=== PATIENT | male | born 1940 | race Caucasian/White ===

== ENCOUNTER → 2023-01-10 14:57 | Outpatient (BNVA) | payer MEDICARE, SELFPAY | PROVIDERS: Family Provider Nurse Practitioner Family; PCP Family Medicine; Referring Provider Family Medicine; Visit Provider Internal Medicine Cardiovascular Disease | DX: R09.89 Other specified symptoms and signs involving the circulatory and respiratory systems (principal); I77.9 Disorder of arteries and arterioles, unspecified; R07.9 Chest pain, unspecified; R06.02 Shortness of breath; I25.10 Atherosclerotic heart disease of native coronary artery without angina pectoris; I48.0 Paroxysmal atrial fibrillation; I11.0 Hypertensive heart disease with heart failure; I50.32 Chronic diastolic (congestive) heart failure; Z95.0 Presence of cardiac pacemaker; R94.31 Abnormal electrocardiogram [ECG] [EKG] | CPT/HCPCS: 36415; 80048; 83880; 93005; 99204 ==

== ENCOUNTER 2023-01-18 12:48 | Outpatient (CLI) | payer MEDICARE, SELFPAY ==
--- NOTE | 2023-01-18 13:00 | USCV_ITS ---
Jl Escobar Age: 82 Gender: M : 1940 Exam Date: 01/18/2023 13:04 Ordering Phys: Christy Draper MD ([email or web address]) Technologist: CT Exam Location: [facility] [place] Indication: stenosis Risk Factors: Previous Vascular Surgery: Right Brachial BP: / Left Brachial BP: / Right Left Velocity (cm/s) Spectral Plaque Velocity (cm/s) Spectral Plaque Syst/Diast Broadening Syst/Diast Broadening 59.30/ 14.80 Prox CCA 73.00 / 15.50 50.40/ 16.00 Mid CCA 70.80 / 17.40 45.40/ 14.20 Distal CCA 58.30 / 16.70 80.90/ 17.70 Prox ICA 54.20 / 21.70 61.30/ 14.20 Mid ICA 408.10/ 112.90 62.30/ 16.80 Distal ICA 283.90/ 80.80 93.70 ECA 172.60 1.36 ICA/CCA 5.59 Antegrade Vertebral Antegrade 38.80/ 7.80 cm/s 47.90/ 16.00 cm/s Bi Subclavian Bi 83.10 87.60 FINDINGS Moderate heterogenous plaques of the right bifurcation and proximal internal carotid artery Moderate heterogenous plaques of the left bifurcation and proximal internal carotid artery. Heavy heterogenous plaques at the mid and distal internal carotid artery on the left side. Markedly elevated Doppler velocities and. Flow turbulence CONCLUSIONS Moderate heterogenous plaques at the bifurcations and proximal internal carotid arteries bilaterally suggesting less than 50% stenosis. Heavy heterogenous plaques at the mid and distal internal carotid artery on the left side with markedly elevated Doppler velocities and. Flow turbulence, suggesting hemodynamically significant stenosis of greater than 70%. Antegrade flow in the vertebral arteries bilaterally. Elevated Doppler flow velocity in the left external carotid artery also may suggest hemodynamically significant stenosis Consider CTA, to better evaluate the stenosis in the left mid to distal ICA No similar previous studies are available for comparison Dr Christy Draper MD [facility] (Electronically Signed) Final Date: 21 January 2023 09:30 S
== END 2023-01-18 12:49 | disposition home or self-care (01) ==
LOC: RAD 12:48
PROVIDERS: Family Provider Nurse Practitioner Family; PCP Family Medicine; Visit Provider Internal Medicine Cardiovascular Disease
DX: I65.23 Occlusion and stenosis of bilateral carotid arteries (principal); I77.9 Disorder of arteries and arterioles, unspecified
CPT/HCPCS: 93880

== ENCOUNTER 2023-01-25 13:13 | Outpatient (CLI) | payer MEDICARE, SELFPAY ==
--- NOTE | 2023-01-25 13:45 | USCV_ITS ---
Jl Escobar Age: 82 Gender: M : 1940 Exam Date: 01/25/2023 13:28 Ordering Phys: Christy Draper MD ([email or web address]) Technologist: Florence Weiss [place] [facility] [place]: CHF BP: 130 / 75 HR: 70 Rhythm: Atrial fibrillation Technical Quality: Adequate MEASUREMENTS (Male / Female) Normal Values 2D ECHO LV Diastolic Diameter PLAX 4.5 cm 4.2 - 5.9 / 3.9 - 5.3 cm LV Systolic Diameter PLAX 3.8 cm LV Chamber Size 3.4 cm IVS Diastolic Thickness 1.3 cm 0.6 - 1.0 / 0.6 - 0.9 cm IVS Systolic Thickness 1.6 cm LVPW Diastolic Thickness 1.4 cm 0.6 - 1.0 / 0.6 - 0.9 cm LVPW Systolic Thickness 1.5 cm RV Chamber Size 3.8 cm LVOT Diameter 2.0 cm LV Ejection Fraction 2D Teich 29.3 % LV Ejection Fraction MOD 2C 77.9 % LV Ejection Fraction 2C AL 78.1 % LA Diameter 3.8 cm LA Width 3.8 cm LA Height 4.2 cm RA Width 3.3 cm RA Height 5.2 cm Aorta at Sinotubular Diameter 3.6 cm IVC Diameter 1.7 cm M-MODE Aortic Annulus Diameter 3.9 cm LA Ao Ratio MM 1.1 MV E Point Septal Separation 0.6 cm DOPPLER AV Peak Velocity 147.0 cm/s LVOT Peak Velocity 83.3 cm/s AV Area Cont Eq vti 1.8 cm squared AV Area Cont Eq pk 1.9 cm squared MV Area PHT 2.7 cm squared MV E' Velocity 53.0 cm/s Mitral E to MV E' Ratio 10.9 Mitral E to LV E' Lateral Ratio 9.1 Mitral E to LV E' Septal Ratio 13.8 TR Peak Velocity 252.5 cm/s TR Peak Gradient 25.5 mmHg TR Mean Velocity 192.9 cm/s TR Mean Gradient 16.4 mmHg TR Velocity Time Integral 77.5 cm TV Peak E Velocity 42.0 cm/s Right Atrial Pressure 3.0 mmHg Pulmonary Artery Systolic Pressu 28.5 mmHg RV Acceleration Time 0.1 s RV Ejection Time 0.3 s RV AcT/ET 0.4 FINDINGS Left Ventricle Diffuse hyponasal left-ventricule.. Somewhat dyskinetic septum. Overall LV ejection fraction of 30 to 35% Right Ventricle Catheter/pacemaker wire in the right ventricular cavity. Right Atrium Moderately increased right atrial size. Catheter/pacemaker wire in the right atrial cavity. Left Atrium Moderately increased left atrial size. Mitral Valve Mild to moderate mitral valve regurgitation. Aortic Valve Thickened aortic valve. Moderate aortic valve calcification. Tricuspid Valve Moderate tricuspid valve regurgitation. Pulmonic Valve No gross abnormality noted Pericardium Normal pericardium without effusion. Aorta Normal aortic annulus size. IVC Normal inferior vena cava. CONCLUSIONS Diffuse hypokinesia of the left ventricle with an ejection fraction of 30 to 35%. Wall motion abnormality as mentioned above Moderate biatrial enlargement. Pacemaker wire noted in the right ventricle Mild to moderate mitral valve regurgitation. Moderate tricuspid valve regurgitation. Estimated pulmonary artery peak systolic pressure of 29 mmHg. There is no pericardial effusion. There are no intracardiac masses. No similar previous studies are available for comparison Dr Christy Draper MD [facility] (Electronically Signed) Final Date: 30 January 2023 16:57 S
[2023-01-25 14:45] LABS: Anion Gap 15.2 (5-19); Blood Urea Nitrogen 22 mg/dL (8-23); Calcium 9.5 mg/dL (8.5-10.5); Carbon Dioxide 27 mmol/L (22-29); Chloride 99 mmol/L (98-107); Glucose 91 mg/dL (65-115); NT Pro B Type Natriuretic Pept 2192 pg/mL (0-450); Osmolality Calculated 289 mOsm/kg (285-295); Potassium 3.2 mmol/L (3.5-5.1); Sodium 138 mmol/L (136-145)
== END 2023-01-25 13:14 | disposition home or self-care (01) ==
PROVIDERS: Family Provider Nurse Practitioner Family; PCP Family Medicine; Visit Provider Internal Medicine Cardiovascular Disease
DX: I50.32 Chronic diastolic (congestive) heart failure (principal); I08.1 Rheumatic disorders of both mitral and tricuspid valves; Z95.0 Presence of cardiac pacemaker
CPT/HCPCS: 36415; 80048; 83880; 93306

== ENCOUNTER 2023-02-08 12:04 | Outpatient (CLI) | payer MEDICARE, SELFPAY ==
--- NOTE | 2023-02-08 12:30 | CT_ITS ---
WS: [id number] CTA NECK TECHNIQUE: Contrast enhanced CTA of the neck with coronal and sagittal reformatted images and maximum intensity projection (MIP) images. NASCET criteria utilized. CLINICAL INFORMATION: R09.89 - Other specified symptoms and signs involving the... COMPARISON: Ultrasound 01/18/2023 DLP: 217.[address] scans at [facility] use at least one of these dose optimization techniques: automated e xposure control; mA and/or kV adjustment per patient size (includes targeted exams where dose is matc hed to clinical indication); or iterative reconstruction. FINDINGS: RIGHT: RIGHT ICA stenosis 41%. RIGHT common carotid artery is patent. Densely calcified atheromatous plaque RIGHT carotid bulb extending into the ICA. RIGHT ICA is patent to the skull base. LEFT: LEFT ICA stenosis greater than 80%. Tiny residual string-like lumen. Moderate stenosis of the L EFT ECA origin. LEFT common carotid artery is patent. Dense calcified atheromatous plaque LEFT caroti d bulb extending into the ICA and ECA. LEFT ICA is patent to the skull base. LEFT dominant vertebral artery. Smaller but patent RIGHT vertebral artery which remains patent. Advanced spondylitic changes cervical spine. Disc osteophyte complex with mild central canal stenosis C5-6. IMPRESSION: 1. RIGHT ICA stenosis 41% 2. LEFT ICA stenosis greater than 80%. Tiny residual string-like lumen. 3. LEFT dominant vertebral artery. Smaller but patent RIGHT vertebral artery which remains patent.
[2023-02-08] MEDS: iohexol 350 mg/mL 500 mL Btl (per mL) IV (12:46)
== END 2023-02-08 12:05 | disposition home or self-care (01) ==
LOC: RAD 12:04
PROVIDERS: Family Provider Nurse Practitioner Family; PCP Family Medicine; Visit Provider Internal Medicine Cardiovascular Disease
DX: R09.89 Other specified symptoms and signs involving the circulatory and respiratory systems (principal); I65.23 Occlusion and stenosis of bilateral carotid arteries
CPT/HCPCS: 70498; Q9967

== ENCOUNTER → 2023-02-09 12:02 | Outpatient (BNVA) | payer MEDICARE, SELFPAY | PROVIDERS: Family Provider Nurse Practitioner Family; PCP Family Medicine; Visit Provider Nurse Practitioner Family | DX: R68.89 Other general symptoms and signs (principal); I50.32 Chronic diastolic (congestive) heart failure | CPT/HCPCS: 80048; 83880; 87400 ==

== ENCOUNTER → 2023-02-24 12:57 | Outpatient (BNVA) | payer MEDICARE, SELFPAY | PROVIDERS: Family Provider Nurse Practitioner Family; PCP Family Medicine; Visit Provider Thoracic Surgery (Cardiothoracic Vascular Surgery) | DX: I65.22 Occlusion and stenosis of left carotid artery (principal); Z95.0 Presence of cardiac pacemaker | CPT/HCPCS: 99203 ==

== ENCOUNTER → 2023-03-03 10:46 | Outpatient (BNVA) | payer MEDICARE, SELFPAY | PROVIDERS: Family Provider Nurse Practitioner Family; PCP Family Medicine; Referring Provider Internal Medicine Cardiovascular Disease; Visit Provider Internal Medicine Cardiovascular Disease | DX: R06.02 Shortness of breath (principal) | CPT/HCPCS: 80048; 83880 ==

== ENCOUNTER → 2023-03-24 10:47 | Outpatient (BNVA) | payer MEDICARE, SELFPAY | PROVIDERS: Family Provider Nurse Practitioner Family; PCP Family Medicine; Referring Provider Internal Medicine Cardiovascular Disease; Visit Provider Internal Medicine Cardiovascular Disease | DX: I50.32 Chronic diastolic (congestive) heart failure (principal) | CPT/HCPCS: 80048; 83880 ==

== ENCOUNTER 2023-04-12 10:21 | Outpatient (CLI) | payer MEDICARE, SELFPAY ==
[2023-04-12 10:42] VITALS: BMI 26.6
--- NOTE | 2023-04-12 10:50 | NMCV_ITS ---
NM flora perf SPECT r/s* [id number] Jl Escobar Age: 82 Gender: M : 1940 Exam Date: 04/12/2023 11:02 Ordering Phys: Christy Draper MD ([email or web address]) Technologist: AGUSTIN Hudson Exam Location: [facility] Indications: CHEST PAIN, SHORTNESS OF BREATH STRESS TEST Please see separate stress test report in [facility] for full findings IMAGE PROTOCOL Rest/Stress 1 Lexiscan Day Radiopharmaceutical Dose (mCi) Administration Site Administered by Rest: Tc-99m 10.7 IV AGUSTIN Fish Sestamibi Stress:Tc-99m 32.2 IV AGUSTIN Fish Sestamibi Rest: 12-Apr-2023 60 Discovery 630 Stress: 12-Apr-2023 30 Discovery 630 0.4mg Lexiscan. Images obtained in supine and prone position. SPECT RESULTS Technical Quality: Excellent Raw Data Analysis: Normal Image Corrections: No attenuation or motion correction applied Summed Stress Score: 18 Summed Rest Score: 9 Summed Difference Score: 9 PERFUSION FINDINGS Moderate to large area of moderate to severely decreased tracer uptake involving the inferior, inferolateral, anterolateral and apical regions. Significant reversibility was noted in these regions FUNCTIONAL RESULTS (calculated via Gated SPECT) Stress Image LV EF (%): 43 Stress EDV (mL):151 TID: 1.03 Stress ESV (mL):86 FUNCTIONAL FINDINGS: Moderate to large area of moderate to severely decreased tracer uptake involving the inferior, inferolateral and apical regions with significant reversibility suggesting myocardial scarring with ischemia in the distribution of the right coronary artery and circumflex artery. 2. Slightly diminished LV ejection fraction of 43%. 3. LV wall motion analysis revealed diffuse hypokinesis of the LV apex and septum. 4. Mildly dilated LV cavity with an end-systolic volume of 86 ml. 5. No similar previous studies are available for comparison IMPRESSIONS Dr Christy Draper MD [facility] (Electronically Signed) Final Date: 12 April 2023 13:46 S
[2023-04-12] MEDS: regadenoson 0.4 Mg/5 ml Syringe 0.400000000000000022 MG IVP (11:55)
[2023-04-12 12:05] VITALS: BP 123/68; PULSE 98
== END 2023-04-12 10:22 | disposition home or self-care (01) ==
PROVIDERS: PCP Family Medicine; Visit Provider Internal Medicine Cardiovascular Disease
DX: R07.9 Chest pain, unspecified (principal); R06.02 Shortness of breath
CPT/HCPCS: 36415; 78452; 93017; 96374; A9500; J2785

== ENCOUNTER → 2023-04-13 10:11 | Outpatient (BNVA) | payer MEDICARE, SELFPAY | PROVIDERS: PCP Family Medicine; Visit Provider Internal Medicine Cardiovascular Disease | DX: I25.10 Atherosclerotic heart disease of native coronary artery without angina pectoris (principal); I50.32 Chronic diastolic (congestive) heart failure; Z79.01 Long term (current) use of anticoagulants; I25.118 Atherosclerotic heart disease of native coronary artery with other forms of angina pectoris; I48.0 Paroxysmal atrial fibrillation; Z95.0 Presence of cardiac pacemaker; I65.22 Occlusion and stenosis of left carotid artery | CPT/HCPCS: 99214 ==

== ENCOUNTER 2023-05-04 08:55 | Observation (INO) | payer MEDICARE, SELFPAY ==
[2023-05-04] VITALS (22 sets, daily range): BP systolic 105–149; BP diastolic 54–80; PULSE 60–65; RESP 7–29; TEMP 36.6; O2SAT 90–98; BMI 26.6
--- NOTE | 2023-05-04 06:00 | XACV_ITS ---
Exam Room: 2 Ht: 175 cm Wt: 82 kg BSA: 2.01 m2 Gender: Male : 1940 Any Known Allergies: Other Exam Priority: Routine Procedure(s): Procedure Description: Diagnostic procedure Procedure Description: Left Heart Catheterization Procedure Description: Venous Graft Catheterization Procedure Description: CARR Graft Catheterization Procedure Description: Coronary Angiography Baron BARRIGA; Diagnostic Cath Status: Elective Diagnostic Findings * The left main is a medium caliber vessel with a mild intimal irregularities. * The left anterior descending artery is a medium caliber vessel which appears to have mild to moderate diffuse disease in the proximal LAD and mid segment. The artery appears to be completely occluded after the second septal gerontology aide. The artery gives of relatively small caliber diagonal vessels proximally with a mild to moderate diffuse disease.. * The circumflex artery is a medium caliber vessel, appears to have mild to moderate diffuse disease proximally. It gives of a high diagonal branch which has moderate diffuse in-stent stenosis in the proximal segment. The artery appears to trifurcated distally with the moderate diffuse disease. No significant stenotic lesions were noted. Left to right collaterals, filling of the PLV branch of the right coronary artery was noted.. * The right coronary artery is a medium caliber dominant vessel which he was found to be diffusely ectatic with mild to moderate diffuse disease. The PLV and PDA branches were found to be totally occluded. The venous graft to the PDA was found to be retrogradely filling during the right coronary injection. * The sequential venous graft to the PDA/obtuse marginal artery was found to be totally occluded proximally. * The CARR to the LAD was found to be widely patent with no significant stenotic lesions. The distal LAD was found to have mild diffuse disease. Conclusions 1. 82-year-old white male with a history of atherosclerotic heart disease, status post three-vessel coronary bypass surgery, chronic atrial fibrillation with a permanent pacemaker implantation for symptomatic bradycardia, was found to have a high-grade stenosis in the left internal carotid artery. His LV ejection fraction was around 35% by echocardiogram. As part of the preop evaluation, he had a Myocardial perfusion imaging which revealed areas of reversible and reversible defects in the distribution of the right coronary artery/circumflex artery. To further evaluate the coronary status as well as the graft status, a cardiac catheterization was recommended. Patient underwent left heart catheterization with a left and right coronary angiogram and graft angiogram today. The findings are as follows. 2. 1. Minimal intimal irregularities in the left main, a medium caliber vessel. 2. Total occlusion of the mid LAD with a mild to moderate diffuse disease in the proximal and mid segment. Total occlusion of the circumflex artery after giving of the first obtuse marginal branch. 4. Total occlusion of the distal right coronary artery with a mild to moderate diffuse disease in the proximal and mid segment. 5. Patent CARR to the distal LAD. Occluded saphenous venous graft to the PDA/obtuse marginal branch of the circumflex artery.6. LVEDP of 11 mmHg. Diagnostic RX Recommendation: medical therapy and/or counseling LV EDP: 11 mmHg Left Ventriculography Findings: * LV gram was not performed because of the chronic kidney disease. LVEDP was 11 mmHg. Pressures Phase:Rest AO : / ( 28 ) @ 8:38:00 AM 130 / 59 ( 86 ) @ 9:00:00 AM 118 / 70 ( 92 ) @ 9:11:00 AM 125 / 81 ( 100 ) @ 9:14:00 AM 120 / 64 ( 81 ) @ 9:26:00 AM 141 / 55 ( 87 ) @ 9:26:00 AM LV : 130 / 3 / 11 @ 9:26:00 AM 126 / 3 / 11 @ 9:26:00 AM 128 / 2 / 10 @ 9:26:00 AM Valves Phase:DefaultPhase AV : 9.0 @ 8:38:44 AM 9.0 @ 8:38:44 AM AV Mean Gradient: 17.0 @ 8:38:44 AM 17.0 @ 8:38:44 AM Clinical Evaluation EBL: 5mL-10mL Procedural Details Pre-Procedure Time Out. Identified patient by full name and date of as verbalized by the patient/guarantor. Does the consent match the physician's order: Yes. Accurate & Complete Informed Consent: Yes. Inpatient/Outpatient History & Physical on Chart: Yes. If H&P is completed, is and addenduem needed: No; If yes, is the addendum complete: N/A. Visualize and Verify Site with Patient/Guarantor: N/A. Relevant Radiology Images available: Yes. Pre-op teaching completed and patient verbalized understanding. The risks, benefits, and alternatives of sedation and/or procedure were discussed by physician. The patient agrees to continue. Procedure started. [facility] Clinical Fraility Score: 3: Managing Well. Wet Silk Hanger Indications: Worsening Angina. Chest Pain Symptom Assessment: Atypical Angina. Correct patient, site and procedure confirmed by cath team. Current diagnosis: Chest Pain. PERRLA. Strong, equal hand aligning inspector bilaterally. Lungs clear x 5 lobes. IV Site on Arrival: 20 gauge in the left anticubital. IV Fluids: 0.9% NaCl at KVO. 0 mL infused prior to woven label designer. Pre Procedural Pulses: bilateral dorsalis pedis was 2+. Pre Procedural Pulses: right posterior tibial was Doppled. Pre Procedural Pulses: left posterior tibial was 1+. Pre Procedural Pulses: bilateral radial was 2+. Oxygen started at 2liters/min via nasal canula. bilateral groins was prepped with chloroprep then draped in the usual sterile fashion. Physician arrived. Current Diagnosis : Chest Pain. Physician scrubbed in. Immediate Pre-Procedure Time Out. Correct Patient: Yes; Correct Procedure: Yes; Correct Site: Yes; Correct Patient Position: Yes; Correct Supplies: Yes; Dried Flammable Prep: Yes; Blood Products Available: N/A;. Lidocaine 1% infiltrated to the right groin. Arterial access obtained with micropuncture set. A Right femoral angiogram was performed. A 5 swiss JR4 catheter in over wire. Catheter removed over the standard wire. The 6Fr sheath was exchanged for a 45cm 6Fr Flexor sheath. Wire out. A 5 swiss JR4 catheter in over wire. Multiple views taken of right coronary artery. Catheter removed over the exchange wire. A 5 swiss IM catheter in over wire. CARR to LAD visualized. Catheter removed over the standard wire. A 5 swiss JL4 catheter in over wire. Multiple views taken of left coronary artery. Catheter removed over the standard wire. A 5 swiss LCB catheter in over wire. SVG to OM occluded. Catheter removed over the standard wire. A 6 swiss 125cm Straight Pig catheter in over wire. EDP Sample taken: LV 130/3,11; HR: 73 BPM; SpO2: 97%. Pullback taken: LV Off; AO Off; Mean: , Peak to Peak: , SEP: ; HR: 73 BPM; SpO2: 97%. EDP Sample taken: LV 126/3,11; HR: 70 BPM; SpO2: 96%. Pullback taken: LV 128/2,10; AO 120/64(81); Mean: 17mmHg, Peak to Peak: 9mmHg, SEP: 15sec/min; HR: 66 BPM; SpO2: 96%. Catheter removed over the exchange wire. The long Flexor sheath exchanged for a 6Fr sheath. A Suture was successful obtaining hemostatsis at the Right Femoral artery insertion site. Post Procedure: Pulses reassessed and unchanged. PERRLA. Strong, equal hand aligning inspector bilaterally. No VTE prophylaxis required. Total IV fluids: 70 mL. Medication's Wasted: Other = Fentanyl 100mcg Versed 1 mg. Medication's Wasted: Heparin = 2500 units. Complications: None. Estimated blood loss: 5mL-10mL. Responsiveness - Normal response to verbal stimuli; alert and oriented, PERRLA. Airway - Unaffected, no intervention required; spontaneous ventilation. Circulation: W/N/L, pulses unchanged. Nausea/Vomiting: No. Procedure completed. Patient transferred by bed to 1st floor. Vital chart was stopped. Access Site Site: Right Femoral artery Sheath Size: 6 Fr Hemostasis Method: Suture Hemostasis Success: Successful Procedure Medications Start: 7:47 AM Stop: 7:47 AM Medication: Versed Amount: 1 mg Route: I.V. Start: 7:50 AM Stop: 7:50 AM Medication: Versed Amount: 1 mg Route: I.V. Start: 8:00 AM Stop: 8:00 AM Medication: Heparin Amount: 1500 units Route: I.V. Start: 8:23 AM Stop: 8:23 AM Medication: Versed Amount: 1 mg Route: I.V. I, the attending physician, have reviewed and verified all procedure medications. Yes, all medications given per verbal order History/Risk Factors Hypertension: Yes Dyslipidemia: No Peripheral Arterial Disease (PAD): No Myocardial Infarction (DC): No Obesity: No Renal Disease: No Tobacco Use: Never Prior Interventions PCI: No CABG: Yes Valve Surgery: No Report Signatures Finalized by Dr Christy Draper MD [facility] on 05/04/2023 06:27 PM
[2023-05-04] MEDS: diphenhydrAMINE 50 mg Capsule PO (06:15)
[2023-05-04 06:23] LABS: Basophils % 0.4 %; Eosinophils # 0.1 10^3/uL (0.0-0.8); Eosinophils % 0.7 %; Hematocrit 45.1 % (37-53); Lymphocytes # 2.8 10^3/uL (0.8-4.8); Lymphocytes % 29.4 %; Mean Corpuscular HGB Conc 34.8 g/dL (30-55); Mean Corpuscular Hemoglobin 35.9 pg (27-33); Mean Corpuscular Volume 103.2 fl (82-101); Mean Platelet Volume 12.1 fL (7.4-10.4); Monocytes # 0.9 10^3/uL (0.2-0.9); Monocytes % 9.1 %; Neutrophils # 5.64 10^3/uL (1.8-7.7); Neutrophils % 60.1 %; Nucleated Red Blood Cells % 0 %; Platelet Count 168 10^3/cmm (157-399); Red Blood Count 4.37 10^6/uL (3.85-5.65); Red Cell Distribution Width 12.8 % (12.1-15.1)
[2023-05-04 06:40] LABS: Blood Urea Nitrogen 30 mg/dL (8-23); Calcium 9.6 mg/dL (8.5-10.5); Carbon Dioxide 23 mmol/L (22-29); Chloride 101 mmol/L (98-107); Creatinine Clr Calc Pharmacy 42.2144; Glucose 118 mg/dL (65-115); Osmolality Calculated 293 mOsm/kg (285-295); Sodium 138 mmol/L (136-145)
--- NOTE | 2023-05-04 07:35 | P.HPUD_ITS ---
Surgery/Procedure H&P Update DATE OF PROCEDURE: May 04, 2023 DATE H&P PERFORMED: 04/13/23 H&P UPDATE INFORMATION: I have reviewed H&P completed within last 30 days, I have examined patient prior to procedure and No changes to prior documentation PREOP DIAGNOSIS: ASHD PRIMARY INDICATION FOR PROCEDURE: Cardiomyopathy/abnormal Myocardial perfusion imaging/previous coronary artery bypass surgery PLANNED PROCEDURE: Operation Date: 05/04/23 07:00 Proposed Procedures p Cardiac Catheterization(Left) - Christy Draper MD PATIENT REASSESSED PRIOR TO SEDATION, WITH NO CHANGE NOTED: Yes PHYSICAL EXAM: alert, oriented x 3, clear to auscultation bilaterally and regul ar rate & rhythm AIRWAY EVAL/ANESTHESIA PLAN: normal airway, see other exam findings, ASA III, Monitored Anesthesia, Local Anesthesia, Risks, benefits & alternatives of sedation and/or procedure discussed and Patient agrees to continue as planned ADDITIONAL INFORMATION: In view of the patient's a chronic kidney disease, he carries a high risk for contrast-induced nephropathy. This was discussed with patient and family in detail which is understood well
--- NOTE | 2023-05-04 08:39 | P.HP_ITS ---
Providers/Chief Complaint 2 Primary Care Provider: Kali Olsen MD Chief Complaint: Abdominal pain History of Present Illness Jl Escobar is a 82 year old male with a history of atherosclerotic heart disease, status post three-vessel coronary bypass surgery in 2010, he is scheduled for a carotid intervention. He had a Myocardial perfusion imaging which revealed the following. 1. Moderate to large area of moderate to severely decreased tracer uptake involving the inferior, inferolateral and apical regions with significant reversibility suggesting myocardial scarring with ischemia in the distribution of the right coronary artery and circumflex artery. 2. Slightly diminished LV ejection fraction of 43%. 3. LV wall motion analysis revealed diffuse hypokinesis of the LV apex and septum. 4. Mildly dilated LV cavity with an end-systolic volume of 86 ml. 5. No similar previous studies are available for comparison In order to further evaluate the coronary status, a cardiac catheterization was recommended. Patient underwent left heart catheterization with a left and right coronary angiogram and graft angiogram. This patient also is known to have chronic atrial fibrillation and has a permanent pacemaker [place]. Patient is known to have chronic kidney disease and his creatinine level today was 1.4. He is admitted to hospital for IV hydration and close monitoring. Review of Systems 2 Narrative: CONSTITUTIONAL: No fever or chills. EYES: No blurring of vision or other visual disturbances lately. ENT: No hoarseness of voice, auditory disturbances or sore throat. CARDIOVASCULAR: As mentioned above. RESPIRATORY: No significant cough. GASTROINTESTINAL: No hematemesis or melena. GENITOURINARY: Chronic kidney disease INTEGUMENTARY: No skin rashes or history of skin cancer. NEURO: No transient ischemic attacks or amaurosis. PSYCHIATRIC: No history of psychosis or major depression. HEMATOLOGIC: No bleeding disorders or significant anemia. ENDOCRINE: No history of polyuria or polydipsia. MUSCULOSKELETAL: No recent joint pain or swelling. ALLERGY/IMMUNOLOGY: As mentioned above. Medications/Allergies Home Medications Medication Instructions Recorded Confirmed Last Taken Type aspirin 81 mg tablet,delayed 81 mg PO DAILY 08/25/19 05/03/23 05/04/23 04:30 History release cholecalciferol (vitamin D3) 125 125 mcg PO DAILY 11/19/21 05/03/23 05/04/23 04:30 History mcg (5,000 unit) capsule fluticasone propionate 50 1 spray intranasal DAILY 11/19/21 05/03/23 Unknown History mcg/actuation nasal spray,suspension (Flonase Allergy Relief) nitroglycerin 0.4 mg sublingual 0.4 mg sublingual Q5M PRN Chest 11/19/21 05/03/23 Unknown History tablet Pain omeprazole 40 mg capsule,delayed 40 mg PO DAILY 11/19/21 05/03/23 05/04/23 04:30 History release cetirizine 10 mg tablet (All Day 10 mg PO DAILY PRN Allergy Symptoms 01/10/23 05/03/23 Unknown History Allergy (cetirizine)) tizanidine 2 mg tablet 2 mg PO TID PRN Muscle Spasm 01/10/23 05/03/23 Unknown History trazodone 100 mg tablet 100 mg PO DAILY 01/10/23 05/03/23 Unknown History apixaban 5 mg tablet (Eliquis) See Rx Instructions .Route 01/18/23 05/04/23 05/01/23 19:00 Rx .COMPLEX #60 tabs furosemide 40 mg tablet 60 mg (1.5 x 40 mg) PO BID #135 02/25/23 05/04/23 05/03/23 Rx tabs spironolactone 25 mg tablet See Rx Instructions .Route 03/08/23 05/03/23 05/04/23 04:30 Rx .COMPLEX #30 tabs potassium chloride 10 mEq 30 meq (3 x 10 mEq) PO DAILY #90 04/04/23 05/03/23 05/04/23 04:30 Rx capsule,extended release caps Allergies Allergy/AdvReac Type Severity Reaction Status Date / Time sulfamethoxazole Allergy Mild ADR-Itching Verified 05/03/23 13:37 sacubitril [From Entresto] AdvReac Mild lowers Verified 05/03/23 13:37 blood pressure ranolazine [From Ranexa] AdvReac ADR-Dizzine Verified 05/03/23 13:37 ss PFSH Acute 2 PFSH: Medical History Pacemaker Social History Smoking and tobacco/nicotine status: never used tobacco/nicotine Second hand smoke exposure: No Alcohol intake: never Substance/Drug Use: never Caregiver/support person: Yes Lives independently: No Household members: spouse Current occupational status: retired Current gender identity: Male Vitals/I&O/Wt Last Vital Signs Temp 97.9 F 05/04/23 06:30 Pulse 61 05/04/23 06:30 Resp 18 05/04/23 06:30 BP 149/80 05/04/23 06:30 Pulse Ox 95 05/04/23 06:30 O2 Del Method Room Air 05/04/23 06:30 Weight last 48 hrs Weight 180 lb Weight 185 lb Physical Exam 2 Narrative: GENERAL: The patient is alert and oriented times three. Not in any acute distress. HEENT: No significant pallor, icterus or lymphadenopathy.Oral cavity: There are no mucous membrane lesions. NECK: Trachea appears to be central. No masses noted. No JVD or thyromegaly appreciated. Carotid bruit on the left side. RESPIRATORY: Chest is symmetrical. No intercostals muscle retraction or any accessory muscle activation. There is no chest wall tenderness. Breath sounds are heard bilaterally. No rales or rhonchi heard. No evidence of any consolidation. BREASTS: Deferred. HEART: The heart sounds are normal. No S3 or S4. Short systolic murmur in the lower sternal border. No diastolic murmurs. No pericardial rub ABDOMEN: No vessel pulsations or distention. No tenderness. No organomegaly appreciated. Bowel sounds are normally heard. : Deferred. RECTAL: Deferred. LYMPHATIC: No lymphadenopathy noted in the neck. EXTREMITIES: No edema or cyanosis. No clubbing. MUSCULOSKELETAL: No acute joint deformities or swelling SKIN: There are no significant rashes or ecchymosis NEUROPSYCHIATRIC: The patient is alert and oriented x3. Appears to be in a good mood. No tremors or rigidity noted. Data 05/04/23 06:15 05/04/23 06:15 Other Labs: Laboratory Last Values WBC 9.40 10^3/uL (3.29-11.43) 05/04/23 06:15 RBC 4.37 10^6/uL (3.85-5.65) 05/04/23 06:15 Hgb 15.70 g/dL (11.27-16.99) 05/04/23 06:15 Hct 45.1 % (37-53) 05/04/23 06:15 MCV 103.2 fl (82-101) H 05/04/23 06:15 MCH 35.9 pg (27-33) H 05/04/23 06:15 MCHC 34.8 g/dL (30-55) 05/04/23 06:15 RDW 12.8 % (12.1-15.1) 05/04/23 06:15 Plt Count 168 10^3/cmm (157-399) 05/04/23 06:15 MPV 12.1 fL (7.4-10.4) H 05/04/23 06:15 Neut % (Auto) 60.1 % 05/04/23 06:15 Lymph % (Auto) 29.4 % 05/04/23 06:15 [place] % (Auto) 9.1 % 05/04/23 06:15 Eos % (Auto) 0.7 % 05/04/23 06:15 Baso % (Auto) 0.4 % 05/04/23 06:15 Neut # (Auto) 5.64 10^3/uL (1.8-7.7) 05/04/23 06:15 Lymph # (Auto) 2.8 10^3/uL (0.8-4.8) 05/04/23 06:15 [place] # (Auto) 0.9 10^3/uL (0.2-0.9) 05/04/23 06:15 Eos # (Auto) 0.1 10^3/uL (0.0-0.8) 05/04/23 06:15 Baso # (Auto) 0.0 10^3/uL (0.0-0.1) 05/04/23 06:15 Nucleated RBC % (auto) 0 % 05/04/23 06:15 Nucleated RBCs # 0.0 /100WBC 05/04/23 06:15 Sodium 138 mmol/L (136-145) 05/04/23 06:15 Potassium 4.0 mmol/L (3.5-5.1) 05/04/23 06:15 Chloride 101 mmol/L (98-107) 05/04/23 06:15 Carbon Dioxide 23 mmol/L (22-29) 05/04/23 06:15 Anion Gap 18.0 (5-19) 05/04/23 06:15 BUN 30 mg/dL (8-23) H 05/04/23 06:15 Creatinine 1.4 mg/dL (0.7-1.2) H 05/04/23 06:15 GFR Calculation Not Reportable 05/04/23 06:15 Glucose 118 mg/dL (65-115) H 05/04/23 06:15 Calculated Osmolality 293 mOsm/kg (285-295) 05/04/23 06:15 Calcium 9.6 mg/dL (8.5-10.5) 05/04/23 06:15 A&P Assessment and plan (1) Atherosclerosis of coronary artery of [place] heart without angina pectoris: Patient had the left heart catheterization with coronary angiogram and graft angiogram today. He was found to have patent CARR to the LAD. The sequential venous graft ?to the obtuse marginal and to the PLV branch was found to be occluded. Patient has significant [id number] collaterals. Mild to moderate diffuse disease was noted in the other vessels. LVEDP was 11 mmHg. Qualifiers: Coronary Disease-Associated Artery/Lesion type: [place] artery Qualified Code(s): I25.10 - Atherosclerotic heart disease of [place] coronary artery without angina pectoris (2) Atrial fibrillation: Currently with a controlled ventricular response rate and demand V pacing. Qualifiers: Atrial fibrillation type: paroxysmal Qualified Code(s): I48.0 - Paroxysmal atrial fibrillation (3) Congestive heart failure: Currently compensated. Qualifiers: Heart failure chronicity: chronic Heart failure type: diastolic Qualified Code(s): I50.32 - Chronic diastolic (congestive) heart failure (4) Presence of permanent cardiac pacemaker: Pacemaker function was found to be appropriate. (5) Benign essential hypertension with target blood pressure below 140/90: Currently normotensive. (6) Left-sided extracranial carotid artery stenosis: Patient is scheduled to have intervention in [place]. Plan Will be giving IV hydration and close monitoring. Will do a BMP in the morning and then possible discharge home Attestations 2 Medical Necessity Statement*: Patient requires 1 midnight stay Coding Level of Care Code 46015 Diagnoses Atherosclerosis of [place] coronary artery of [place] heart without angina pectoris I25.10 Coronary Disease-Associated Artery/Lesion type: [place] artery Paroxysmal atrial fibrillation I48.0 Atrial fibrillation type: paroxysmal Chronic diastolic congestive heart failure I50.32 Heart failure chronicity: chronic Heart failure type: diastolic Presence of permanent cardiac pacemaker Z95.0 Benign essential hypertension with target blood pressure below 140/90 I10 Left-sided extracranial carotid artery stenosis I65.22
[2023-05-04] MEDS: spironolactone 25 mg Tablet PO (11:04)
[2023-05-04] MEDS: FUROsemide 40 mg Tablet 60 MG PO (11:04)
[2023-05-04] MEDS: sodium chloride 0.9% 1,000 ML 50 ML IV (11:04)
[2023-05-04] MEDS: apixaban 5 mg Tablet PO ×2 (11:05→17:27)
[2023-05-04] MEDS: sennosides-docusate Tablet 2 TAB PO (20:13)
[2023-05-04] MEDS: temazepam 15 mg Capsule PO (20:13)
[2023-05-05] VITALS: BP 129/69; PULSE 68; RESP 18; TEMP 36.5; O2SAT 99
[2023-05-05 04:00] VITALS: BP 122/65; PULSE 63; RESP 14; TEMP 37; O2SAT 95
[2023-05-05 05:53] VITALS: PULSE 63
[2023-05-05 06:38] LABS: Anion Gap 15.3 (5-19); Blood Urea Nitrogen 28 mg/dL (8-23); Calcium 9.2 mg/dL (8.5-10.5); Carbon Dioxide 24 mmol/L (22-29); Chloride 104 mmol/L (98-107); Creatinine Clr Calc Pharmacy 46.1564; Glucose 102 mg/dL (65-115); Osmolality Calculated 294 mOsm/kg (285-295); Potassium 4.3 mmol/L (3.5-5.1); Sodium 139 mmol/L (136-145)
[2023-05-05 07:45] VITALS: BP 140/78; PULSE 62; RESP 21; TEMP 36.8; O2SAT 96
[2023-05-05] MEDS: pantoprazole DR 40 mg Tablet PO (09:04)
[2023-05-05] MEDS: apixaban 5 mg Tablet PO (09:04)
[2023-05-05] MEDS: spironolactone 25 mg Tablet PO (09:04)
[2023-05-05] MEDS: cholecalciferol (vitamin D3) 5,000 unit Tablet 125 UNIT PO (09:05)
[2023-05-05] MEDS: aspirin 81 mg EC Tablet PO (09:05)
--- NOTE | 2023-05-05 09:51 | P.PN_ITS ---
Subjective 2 Subjective: This is a final progress note this patient is admitted to hospital following the cardiac catheterization for IV fluid administration and observation. Patient remained stable throughout the hospital course. Has not had any chest pain, palpitation or any new symptoms. Medications: Medication Review Details: Current Medications Acetaminophen (Acetaminophen 325 Mg Tablet) 650 mg PO Q6H PRN PRN Reason: MILD PAIN Al Hydrox/Mg Hydrox/Simethicone (Afcg-Baz-Heqbwyugq-[place]pc[place] 30 Ml Udc) 30 ml PO Q15M PRN PRN Reason: INDIGESTION Alprazolam (Alprazolam 0.5 Mg Tablet) 0.25 mg PO TID PRN PRN Reason: ANXIETY Apixaban (Apixaban 5 Mg Tablet) 5 mg PO BID [facility] Last Admin: 05/05/23 09:04 Dose: 5 mg Aspirin (Aspirin 81 Mg Ec Tablet) 81 mg PO DAILY [facility] Last Admin: 05/05/23 09:05 Dose: 81 mg Atropine Sulfate (Atropine 1 Mg/Ml Sdv 1 Ml) 0.5 mg IVP PRN PRN PRN Reason: Symptomatic bradycardia Cetirizine HCl (Cetirizine 10 Mg Tablet) 10 mg PO DAILY PRN PRN Reason: Allergy Symptoms Fluticasone Propionate (Fluticasone Nasal [place] 16gm Btl) 1 spray INTRANASAL DAILY [facility] Last Admin: 05/05/23 09:21 Dose: Not Given Furosemide (Furosemide 40 Mg Tablet) 60 mg PO BID [facility] Last Admin: 05/05/23 09:22 Dose: Not Given Sodium Chloride (Sodium Chloride 0.9%) 1,000 mls @ 75 mls/hr IV .[id number] [facility] Last Admin: 05/05/23 08:51 Dose: Not Given Magnesium Hydroxide (Magnesium Hydroxide 30 Ml Udc) 30 ml PO DAILY PRN PRN Reason: CONSTIPATION Naloxone HCl (Naloxone 0.4 Mg/Ml Sdv) 0.1 mg IVP Q2M PRN PRN Reason: RESPIRATORY RATE < 8/MIN Nitroglycerin (Nitroglycerin 0.4 Mg Sublingual Tablet) 0.4 mg SUBLINGUAL Q5M PRN PRN Reason: Chest Pain Pantoprazole Sodium (Pantoprazole Dr 40 Mg Tablet) 40 mg PO DAILY [facility] Last Admin: 05/05/23 09:04 Dose: 40 mg Potassium Chloride (Potassium Chloride Er 10 Meq Tablet) 30 meq PO DAILY [facility] Last Admin: 05/05/23 09:22 Dose: Not Given Spironolactone (Spironolactone 25 Mg Tablet) 25 mg PO DAILY [facility] Last Admin: 05/05/23 09:04 Dose: 25 mg Temazepam (Temazepam 15 Mg Capsule) 15 mg PO BEDTIME PRN PRN Reason: INSOMNIA Last Admin: 05/04/23 20:13 Dose: 15 mg Tizanidine HCl (Tizanidine 4 Mg Tablet) 2 mg PO TID PRN PRN Reason: Muscle Spasm Trazodone HCl (Trazodone 100 Mg Tablet) 100 mg PO DAILY [facility] Last Admin: 05/05/23 09:22 Dose: Not Given Vitamin D (Cholecalciferol (Vitamin D3) 5,000 Unit Tablet) 125 unit PO DAILY [facility] Last Admin: 05/05/23 09:05 Dose: 125 unit Vitals/I&O/Wt Last Vital Signs Temp 98.3 F 05/05/23 07:45 Pulse 62 05/05/23 07:45 Resp 21 H 05/05/23 07:45 BP 140/78 05/05/23 07:45 Pulse Ox 96 05/05/23 07:45 O2 Del Method Room Air 05/05/23 04:00 05/04/23 05/05/23 05/05/23 22:59 06:59 14:59 Intake Total 450 / 450 1240 / 1240 Output Total 250 / 750 Balance -250 / -750 450 / -300 1240 / 1240 Weight last 48 hrs Weight 191 lb 6.4 oz Weight 180 lb Weight 185 lb Physical Exam 2 Narrative: GENERAL: The patient is alert and oriented times three. Not in any acute distress. HEENT: No significant pallor, icterus or lymphadenopathy.Oral cavity: There are no mucous membrane lesions. NECK: Trachea appears to be central. No masses noted. No JVD or thyromegaly appreciated. Carotid bruit on the left side. RESPIRATORY: Chest is symmetrical. No intercostals muscle retraction or any accessory muscle activation. There is no chest wall tenderness. Breath sounds are heard bilaterally. No rales or rhonchi heard. No evidence of any consolidation. BREASTS: Deferred. HEART: The heart sounds are normal. No S3 or S4. Short systolic murmur in the lower sternal border. No diastolic murmurs. No pericardial rub ABDOMEN: No vessel pulsations or distention. No tenderness. No organomegaly appreciated. Bowel sounds are normally heard. : Deferred. RECTAL: Deferred. LYMPHATIC: No lymphadenopathy noted in the neck. EXTREMITIES: No edema or cyanosis. No clubbing. MUSCULOSKELETAL: No acute joint deformities or swelling SKIN: There are no significant rashes or ecchymosis NEUROPSYCHIATRIC: The patient is alert and oriented x3. Appears to be in a good mood. No tremors or rigidity noted. Data 05/04/23 06:15 05/05/23 06:03 Other Labs: Laboratory Last Values WBC 9.40 10^3/uL (3.29-11.43) 05/04/23 06:15 RBC 4.37 10^6/uL (3.85-5.65) 05/04/23 06:15 Hgb 15.70 g/dL (11.27-16.99) 05/04/23 06:15 Hct 45.1 % (37-53) 05/04/23 06:15 MCV 103.2 fl (82-101) H 05/04/23 06:15 MCH 35.9 pg (27-33) H 05/04/23 06:15 MCHC 34.8 g/dL (30-55) 05/04/23 06:15 RDW 12.8 % (12.1-15.1) 05/04/23 06:15 Plt Count 168 10^3/cmm (157-399) 05/04/23 06:15 MPV 12.1 fL (7.4-10.4) H 05/04/23 06:15 Neut % (Auto) 60.1 % 05/04/23 06:15 Lymph % (Auto) 29.4 % 05/04/23 06:15 [place] % (Auto) 9.1 % 05/04/23 06:15 Eos % (Auto) 0.7 % 05/04/23 06:15 Baso % (Auto) 0.4 % 05/04/23 06:15 Neut # (Auto) 5.64 10^3/uL (1.8-7.7) 05/04/23 06:15 Lymph # (Auto) 2.8 10^3/uL (0.8-4.8) 05/04/23 06:15 [place] # (Auto) 0.9 10^3/uL (0.2-0.9) 05/04/23 06:15 Eos # (Auto) 0.1 10^3/uL (0.0-0.8) 05/04/23 06:15 Baso # (Auto) 0.0 10^3/uL (0.0-0.1) 05/04/23 06:15 Nucleated RBC % (auto) 0 % 05/04/23 06:15 Nucleated RBCs # 0.0 /100WBC 05/04/23 06:15 Sodium 139 mmol/L (136-145) 05/05/23 06:03 Potassium 4.3 mmol/L (3.5-5.1) 05/05/23 06:03 Chloride 104 mmol/L (98-107) 05/05/23 06:03 Carbon Dioxide 24 mmol/L (22-29) 05/05/23 06:03 Anion Gap 15.3 (5-19) 05/05/23 06:03 BUN 28 mg/dL (8-23) H 05/05/23 06:03 Creatinine 1.3 mg/dL (0.7-1.2) H 05/05/23 06:03 GFR Calculation Not Reportable 05/05/23 06:03 Glucose 102 mg/dL (65-115) 05/05/23 06:03 Calculated Osmolality 294 mOsm/kg (285-295) 05/05/23 06:03 Calcium 9.2 mg/dL (8.5-10.5) 05/05/23 06:03 A&P Assessment and plan (1) Atherosclerosis of coronary artery of [place] heart without angina pectoris: Patient had the left heart catheterization with coronary angiogram and graft angiogram today. He was found to have patent CARR to the LAD. The sequential venous graft ?to the obtuse marginal and to the PLV branch was found to be occluded. Patient has significant [id number] collaterals. Mild to moderate diffuse disease was noted in the other vessels. LVEDP was 11 mmHg. Qualifiers: Coronary Disease-Associated Artery/Lesion type: [place] artery Qualified Code(s): I25.10 - Atherosclerotic heart disease of [place] coronary artery without angina pectoris (2) Atrial fibrillation: Currently with a controlled ventricular response rate and demand V pacing. Qualifiers: Atrial fibrillation type: paroxysmal Qualified Code(s): I48.0 - Paroxysmal atrial fibrillation (3) Congestive heart failure: Currently compensated. Qualifiers: Heart failure type: diastolic Heart failure chronicity: chronic Qualified Code(s): I50.32 - Chronic diastolic (congestive) heart failure (4) Presence of permanent cardiac pacemaker: Pacemaker function was found to be appropriate. (5) Benign essential hypertension with target blood pressure below 140/90: Currently normotensive. (6) Left-sided extracranial carotid artery stenosis: Patient is scheduled to have intervention in [place]. (7) Chronic kidney disease (CKD): Patient was on IV fluid hydration. The repeat BUN/creatinine this morning was at 28 and 1.3. Qualifiers: Chronic kidney disease stage 3 subtype: stage 3a (GFR 45-59) Chronic kidney disease stage: stage 3 (moderate) Qualified Code(s): N18.31 - Chronic kidney disease, stage 3a Plan Since the patient remained stable with a stable kidney function, he is being discharged home today. Attestations 2 Medical Necessity Statement*: Discharge home today Coding Level of Care Code 38960 Diagnoses Atherosclerosis of [place] coronary artery of [place] heart without angina pectoris I25.10 Coronary Disease-Associated Artery/Lesion type: [place] artery Paroxysmal atrial fibrillation I48.0 Atrial fibrillation type: paroxysmal Chronic diastolic congestive heart failure I50.32 Heart failure type: diastolic Heart failure chronicity: chronic Presence of permanent cardiac pacemaker Z95.0 Benign essential hypertension with target blood pressure below 140/90 I10 Left-sided extracranial carotid artery stenosis I65.22 Stage 3a chronic kidney disease N18.31 Chronic kidney disease stage 3 subtype: stage 3a (GFR 45-59) Chronic kidney disease stage: stage 3 (moderate)
[2023-05-05 10:09] VITALS: BP 140/78; PULSE 62; RESP 21; TEMP 36.8; O2SAT 96
== END 2023-05-05 10:08 | disposition home or self-care (01) ==
LOC: CCL 05-05 01:56 → CSU 05-05 01:56
PROVIDERS: Admitting Provider Internal Medicine Cardiovascular Disease; PCP Family Medicine; Visit Provider Internal Medicine Cardiovascular Disease
DX: I25.10 Atherosclerotic heart disease of native coronary artery without angina pectoris (principal); I11.0 Hypertensive heart disease with heart failure; I50.32 Chronic diastolic (congestive) heart failure; Z95.0 Presence of cardiac pacemaker; I65.22 Occlusion and stenosis of left carotid artery; Z95.1 Presence of aortocoronary bypass graft; I48.20 Chronic atrial fibrillation, unspecified
CPT/HCPCS: 36415; 80048; 85025; 93459; 96365; 96367; 96374; 96375; 99152; 99153; C1769; C1887; C1894; G0378; J1644; J2250; J3010; J3490; J7030; Q0163; Q9967

== ENCOUNTER → 2023-05-19 13:24 | Outpatient (BNVA) | payer MEDICARE, SELFPAY | PROVIDERS: PCP Family Medicine; Visit Provider Nurse Practitioner Family | DX: I25.10 Atherosclerotic heart disease of native coronary artery without angina pectoris (principal); Z95.0 Presence of cardiac pacemaker; Z79.01 Long term (current) use of anticoagulants | CPT/HCPCS: 80048; 99214 ==

== ENCOUNTER → 2023-07-12 13:41 | Outpatient (BNVA) | payer MEDICARE, SELFPAY | PROVIDERS: PCP Family Medicine; Visit Provider Internal Medicine Cardiovascular Disease | DX: I48.0 Paroxysmal atrial fibrillation (principal); I25.10 Atherosclerotic heart disease of native coronary artery without angina pectoris; Z95.0 Presence of cardiac pacemaker; I10 Essential (primary) hypertension; I65.22 Occlusion and stenosis of left carotid artery; R40.0 Somnolence; Z79.01 Long term (current) use of anticoagulants; Z79.82 Long term (current) use of aspirin | CPT/HCPCS: 99214 ==

== ENCOUNTER → 2023-12-02 09:25 | Outpatient (BNVA) | payer MEDICARE, SELFPAY | PROVIDERS: PCP Family Medicine; Visit Provider Nurse Practitioner Family | DX: I50.22 Chronic systolic (congestive) heart failure (principal); I48.0 Paroxysmal atrial fibrillation; Z79.01 Long term (current) use of anticoagulants; E87.70 Fluid overload, unspecified | CPT/HCPCS: 99214 ==

== ENCOUNTER → 2024-01-03 10:43 | Outpatient (BNVA) | payer MEDICARE, SELFPAY | PROVIDERS: PCP Family Medicine; Visit Provider Internal Medicine Cardiovascular Disease | DX: I48.0 Paroxysmal atrial fibrillation (principal); I25.10 Atherosclerotic heart disease of native coronary artery without angina pectoris; Z95.0 Presence of cardiac pacemaker; I65.22 Occlusion and stenosis of left carotid artery; N18.31 Chronic kidney disease, stage 3a; I12.9 Hypertensive chronic kidney disease with stage 1 through stage 4 chronic kidney disease, or unspecified chronic kidney disease; Z79.01 Long term (current) use of anticoagulants; Z79.82 Long term (current) use of aspirin | CPT/HCPCS: 99214 ==

== ENCOUNTER 2024-01-24 11:16 | Outpatient (CLI) | payer MEDICARE, SELFPAY ==
--- NOTE | 2024-01-24 12:00 | USCV_ITS ---
Jl Escobar Age: 83 Gender: M : 1940 Exam Date: 01/24/2024 11:28 Ordering Phys: Eliza Razo Technologist: CT Exam Location: [facility] [place]_ Indication: BP: 128 / 74 HR: 65 Rhythm: Sinus Technical Quality: Adequate MEASUREMENTS (Male / Female) Normal Values 2D ECHO LVOT Diameter 2.0 cm LV Ejection Fraction MOD 4C 47.5 % LV Ejection Fraction MOD 2C 53.4 % LV Ejection Fraction 2C AL 56.5 % LA Diameter 4.6 cm RA Systolic Volume 4C AL 62.1 ml RA Systolic Volume 4C MOD 59.2 ml LA Sys Volume AL 102.0 cm cubed LA Sys Volume Index AL 50.8 cm cubed/m squared Aorta at Sinotubular Diameter 2.4 cm M-MODE LA Ao Ratio MM 1.3 AV Cusp Separation MM 1.0 cm DOPPLER AV Peak Velocity 188.7 cm/s LVOT Peak Velocity 101.0 cm/s AV Area Cont Eq vti 2.2 cm squared AV Area Cont Eq pk 1.7 cm squared MV Peak Velocity 125.0 cm/s MV Area PHT 2.9 cm squared Mitral E to A Ratio 351.0 TR Peak Velocity 363.0 cm/s TR Peak Gradient 52.7 mmHg TR Mean Velocity 269.0 cm/s TR Mean Gradient 32.3 mmHg TR Velocity Time Integral 87.7 cm TV Peak E Velocity 99.0 cm/s PV Peak Velocity 91.0 cm/s FINDINGS Left Ventricle Diffuse hypokinesia of the left ventricular ejection fraction of 35 to 40%. (visual).Grade I/IV diastolic dysfunction (abnormal relaxation filling pattern), normal to mildly elevated filling pressures. Right Ventricle Pacemaker /defibrillator wire in the right ventricle Right Atrium Moderately increased right atrial size. Pacemaker wire in the right atrium Left Atrium Moderately increased left atrial size. Mitral Valve Moderate mitral valve regurgitation. Aortic Valve Thickened aortic valve. Moderate aortic valve calcification. Tricuspid Valve Moderate tricuspid valve regurgitation. Estimated pulmonary artery peak systolic pressure 56 mmHg with a mean pressure of 35 mmHg Pulmonic Valve Mild pulmonary valve regurgitation. Pericardium Normal pericardium without effusion. Aorta Normal ascending aorta dimension. IVC Inferior vena cava not visualized. CONCLUSIONS Diffuse hypokinesia of the left ventricular ejection fraction of 35 to 40%. (visual).Grade I/IV diastolic dysfunction (abnormal relaxation filling pattern), normal to mildly elevated filling pressures. ModModerate mitral valve regurgitation. erate biatrial enlargement. Thickened aortic valve. Moderate aortic valve calcification. Moderate tricuspid valve regurgitation. Moderate pulmonary hypertension.Estimated pulmonary artery peak systolic pressure 56 mmHg. Mild pulmonary valve regurgitation. There is no pericardial effusion. Compared to the study from 01/25/2023, there is slight improvement in the LV ejection fraction Dr Christy Draper MD [facility] (Electronically Signed) Final Date: 24 January 2024 23:08 S
--- NOTE | 2024-01-24 13:15 | USCV_ITS ---
Jl Escobar Age: 83 Gender: M : 1940 Exam Date: 01/24/2024 11:53 Ordering Phys: Christy Draper MD ([email or web address]) Technologist: CT Exam Location: [facility] [place], [place] Indication: stent left Risk Factors: Previous Vascular Surgery: Right Brachial BP: / Left Brachial BP: / Right Left Velocity (cm/s) Spectral Plaque Velocity (cm/s) Spectral Plaque Syst/Diast Broadening Syst/Diast Broadening 112.10/21.60 Prox CCA 71.30 / 15.90 81.10/ 20.20 Mid CCA 73.50 / 16.10 72.40/ 20.20 Distal CCA 81.10 / 22.40 126.30/32.60 Prox ICA 65.10 / 16.60 55.60/ 15.30 Mid ICA 70.50 / 25.10 80.80/ 21.20 Distal ICA 57.20 / 13.90 114.00 ECA 109.00 1.70 ICA/CCA 0.90 Antegrade Vertebral Antegrade 82.70/ 18.40 cm/s 43.70/ 13.70 cm/s Bi Subclavian Bi 72.90 99.40 FINDINGS prx rt ica has severe anterior wall plq and not dopplerable due to shadowing. There maybe stenosis in this area. similar on the left, the stent is patent. Moderate to heavy diffuse plaques at the bifurcation and proximal ICA on the right side Mild to moderate plaque in the left bifurcation. Patent stented segment of the mid ICA. Antegrade flow in vertebral arteries bilaterally. Normal Doppler velocities in the external carotid and subclavian arteries bilaterally CONCLUSIONS Moderate to heavy diffuse plaques at the bifurcation and proximal ICA on the right side with the Doppler flow velocity elevation suggesting 50 to 69% stenosis. Because of plaque shadowing there may be an underestimation of the degree of stenosis. Mild to moderate plaques of the left bifurcation and proximal ICA suggesting less than 50% gnosis Patent stented segment of the left ICA with normal Doppler velocities suggesting no significant in-stent stenosis No significant stenosis in the external carotid, vertebral and subclavian arteries bilaterally based on the above findings Dr Christy Draper MD [facility] (Electronically Signed) Final Date: 02 February 2024 16:15 S
== END 2024-01-24 11:17 | disposition home or self-care (01) ==
PROVIDERS: PCP Family Medicine; Visit Provider Internal Medicine Cardiovascular Disease
DX: I48.0 Paroxysmal atrial fibrillation (principal); I65.23 Occlusion and stenosis of bilateral carotid arteries; I50.1 Left ventricular failure, unspecified; I50.30 Unspecified diastolic (congestive) heart failure; I34.0 Nonrheumatic mitral (valve) insufficiency; I07.1 Rheumatic tricuspid insufficiency; I35.9 Nonrheumatic aortic valve disorder, unspecified; I70.0 Atherosclerosis of aorta; Z95.0 Presence of cardiac pacemaker
CPT/HCPCS: 93306; 93880

== ENCOUNTER → 2024-06-19 12:57 | Outpatient (BNVA) | payer MEDICARE, SELFPAY | PROVIDERS: PCP Family Medicine; Visit Provider Nurse Practitioner Family | DX: Z09 Encounter for follow-up examination after completed treatment for conditions other than malignant neoplasm (principal); I48.0 Paroxysmal atrial fibrillation; I25.10 Atherosclerotic heart disease of native coronary artery without angina pectoris; Z95.0 Presence of cardiac pacemaker; I65.22 Occlusion and stenosis of left carotid artery; I12.9 Hypertensive chronic kidney disease with stage 1 through stage 4 chronic kidney disease, or unspecified chronic kidney disease; N18.31 Chronic kidney disease, stage 3a; Z79.01 Long term (current) use of anticoagulants | CPT/HCPCS: 36415; 80048; 83880; 85025; 99213 ==

== ENCOUNTER → 2024-06-26 10:41 | Outpatient (BNVA) | payer MEDICARE, SELFPAY | PROVIDERS: PCP Family Medicine; Referring Provider Internal Medicine Cardiovascular Disease; Visit Provider Internal Medicine Cardiovascular Disease | DX: N18.31 Chronic kidney disease, stage 3a (principal) | CPT/HCPCS: 80048 ==

== ENCOUNTER → 2024-07-03 13:11 | Outpatient (BNVA) | payer MEDICARE, SELFPAY | PROVIDERS: PCP Family Medicine; Referring Provider Nurse Practitioner Family; Visit Provider Nurse Practitioner Family | DX: N18.31 Chronic kidney disease, stage 3a (principal) | CPT/HCPCS: 80048 ==

== ENCOUNTER → 2024-07-17 13:04 | Outpatient (BNVA) | payer MEDICARE, SELFPAY | PROVIDERS: PCP Family Medicine; Referring Provider Internal Medicine Cardiovascular Disease; Visit Provider Internal Medicine Cardiovascular Disease | DX: N18.31 Chronic kidney disease, stage 3a (principal) | CPT/HCPCS: 80048 ==

== ENCOUNTER 2024-07-25 11:37 | Outpatient (CLI) | payer MEDICARE, SELFPAY ==
[2024-07-25 12:42] LABS: Anion Gap 19.4 (5-19); Blood Urea Nitrogen 20 mg/dL (8-23); Carbon Dioxide 24 mmol/L (22-29); Chloride 102 mmol/L (98-107); Glucose 134 mg/dL (65-115); Osmolality Calculated 299 mOsm/kg (285-295); Potassium 3.4 mmol/L (3.5-5.1); Sodium 142 mmol/L (136-145)
== END 2024-07-25 11:38 | disposition home or self-care (01) ==
PROVIDERS: PCP Family Medicine; Visit Provider Nurse Practitioner Family
DX: N18.31 Chronic kidney disease, stage 3a (principal)
CPT/HCPCS: 36415; 80048

== ENCOUNTER → 2024-08-21 10:58 | Outpatient (BNVA) | payer MEDICARE, SELFPAY | PROVIDERS: PCP Family Medicine; Visit Provider Internal Medicine Cardiovascular Disease | DX: I25.10 Atherosclerotic heart disease of native coronary artery without angina pectoris (principal); I65.22 Occlusion and stenosis of left carotid artery; I48.91 Unspecified atrial fibrillation; Z79.01 Long term (current) use of anticoagulants; Z79.82 Long term (current) use of aspirin; I12.9 Hypertensive chronic kidney disease with stage 1 through stage 4 chronic kidney disease, or unspecified chronic kidney disease; N18.9 Chronic kidney disease, unspecified; Z95.0 Presence of cardiac pacemaker | CPT/HCPCS: 36415; 80048; 99214 ==

== ENCOUNTER → 2024-08-29 13:06 | Outpatient (BNVA) | payer MEDICARE, SELFPAY | PROVIDERS: PCP Family Medicine; Visit Provider Internal Medicine Cardiovascular Disease | DX: Z45.018 Encounter for adjustment and management of other part of cardiac pacemaker (principal) | CPT/HCPCS: 93296 ==

== ENCOUNTER → 2024-11-02 09:41 | Outpatient (BNVA) | payer MEDICARE, SELFPAY | PROVIDERS: PCP Family Medicine; Referring Provider Internal Medicine Cardiovascular Disease; Visit Provider Internal Medicine Cardiovascular Disease | DX: I25.10 Atherosclerotic heart disease of native coronary artery without angina pectoris (principal); I48.0 Paroxysmal atrial fibrillation; Z01.89 Encounter for other specified special examinations | CPT/HCPCS: 80048; 83880 ==

== ENCOUNTER → 2024-12-06 10:43 | Outpatient (BNVA) | payer MEDICARE, SELFPAY | PROVIDERS: PCP Family Medicine; Referring Provider Family Medicine; Visit Provider Internal Medicine | DX: J44.9 Chronic obstructive pulmonary disease, unspecified (principal); I50.20 Unspecified systolic (congestive) heart failure; J44.1 Chronic obstructive pulmonary disease with (acute) exacerbation | CPT/HCPCS: 99204; Q3014 ==

== ENCOUNTER 2025-01-07 12:19 | Outpatient (CLI) | payer MEDICARE, SELFPAY ==
--- NOTE | 2025-01-07 13:00 | USCV_ITS ---
Shawn Jl Age: 84 Gender: M : 1940 Exam Date: 01/07/2025 13:00 Ordering Phys: Christy Draper MD ([email or web address]) Technologist: ILAN Exam Location: [facility] [place] Indication: stenosis/left carotid stent Risk Factors: Previous Vascular Surgery: Right Brachial BP: / Left Brachial BP: / Right Left Velocity (cm/s) Spectral Plaque Velocity (cm/s) Spectral Plaque Syst/Diast Broadening Syst/Diast Broadening 107.30/20.30 Prox CCA 48.00 / 8.30 88.90/ 26.70 Mid CCA 57.00 / 17.60 72.00/ 25.40 Distal CCA 90.40 / 21.30 80.70/ 19.50 Prox ICA 58.60 / 14.10 90.20/ 26.60 Mid ICA 172.90/ 12.90 69.60/ 17.20 Distal ICA 166.30/ 19.60 105.10 ECA 55.10 1.30 ICA/CCA 1.90 Antegrade Vertebral Antegrade 28.40/ 7.90 cm/s 57.40/ 14.20 cm/s Bi Subclavian Tri 36.50 101.7 0 FINDINGS Left carotid stent CONCLUSIONS Right ICA stenosis <50%. Moderate atheromatous plaque right carotid bulb/ICA. Proximal Left ICA stenosis <50%. Mid Left ICA stenosis 50-69% with increased PSV compared to previous. Moderate atheromatous plaque left carotid bulb/ICA. Intimal thickening in the common carotid arteries and internal carotid arteries bilaterally. Normal antegrade Doppler flow noted in the right vertebral artery. Normal antegrade Doppler flow noted in the left vertebral artery. David Rodriguez MD (Electronically Signed) Final Date: 07 January 2025 15:40 S
== END 2025-01-07 12:20 | disposition home or self-care (01) ==
LOC: RAD 12:20
PROVIDERS: PCP Family Medicine; Visit Provider Internal Medicine Cardiovascular Disease
DX: I65.23 Occlusion and stenosis of bilateral carotid arteries (principal)
CPT/HCPCS: 93880

== ENCOUNTER 2025-01-24 11:37 | Outpatient (CLI) | payer MEDICARE, SELFPAY | END 2025-01-24 11:38 | disposition home or self-care (01) | LOC: RT 11:38 | PROVIDERS: PCP Family Medicine; Visit Provider Internal Medicine | DX: J44.9 Chronic obstructive pulmonary disease, unspecified (principal) | CPT/HCPCS: 94010; 94618; 94726; 94729 ==